=== PATIENT | male | born 1965 | race Caucasian/White ===

== ENCOUNTER 2019-11-23 02:12 | Inpatient (IN) | payer BC ==
[2019-11-23] MEDS ORDERED: SODIUM CHLORIDE 0.9% 1,000 ML IV STA (02:28)
--- NOTE | 2019-11-23 02:28 | ED ---
GI Bleed HPI - General Chief complaint: GI Bleed Stated complaint: blood in stool Time Seen by Provider: 11/23/19 02:28 Source: patient, family Mode of arrival: wheelchair Limitations: no limitations - History of Present Illness Initial comments: Kamari Kitchen previously healthy 53-year-old male who is brought to the ER today by his in a private vehicle for evaluation of acute onset of bright red bleeding per rectum. Patient reports he has had 4-6 episodes of bright red bleeding per rectum in the past 2 hours which prompted him to come to the ER for evaluation. Patient has no history of GI bleeding in the past. He has never had a colonoscopy. He is not on any anticoagulant medication but states that he takes 2 aspirin daily and sometimes takes extra for pain. Patient denies any recent abdominal pain, fevers, chills nausea or vomiting. - Related Data Allergies Allergy/AdvReac Type Severity Reaction Status Date / Time No Known Allergies Allergy Verified 11/23/19 02:23 Review of Systems ROS Statement: Those systems with pertinent positive or pertinent negative responses have been documented in the HPI. ROS Other: All systems not noted in ROS Statement are negative. Past Medical History Past Medical History: No Reported History History of Any Multi-Drug Resistant Organisms: None Reported Past Surgical History: Tonsillectomy Past Psychological History: No Psychological Hx Reported Smoking Status: Former smoker Past Alcohol Use History: Occasional Past Drug Use History: None Reported General Exam - General Exam Comments Initial Comments: Physical Exam GENERAL: Patient is acutely distressed he is pale cool and diaphoretic HENT: Normocephalic, Atraumatic. EYES: PERRL, EOMI No conjunctival pallor PULMONARY: Unlabored respirations. No audible rales rhonchi or wheezing was noted. CARDIOVASCULAR: There is a regular rate and rhythm without any murmurs gallops or rubs. ABDOMEN: Soft and nontender with normal bowel sounds. SKIN: Skin is pale cool and diaphoretic : Bright red blood per rectum NEUROLOGIC: Patient is alert and oriented x3. Moving all extremities spontaneously MUSCULOSKELETAL: Normal extremities with adequate strength and full range of motion. No lower extremity swelling or edema. No calf tenderness. PSYCHIATRIC: Normal psychiatric evaluation. Limitations: no limitations Course Vital Signs 11/23/19 11/23/19 11/23/19 02:16 02:39 03:00 Temperature 98.1 F Pulse Rate 61 61 64 Respiratory 20 20 16 Rate Blood Pressure 98/63 94/63 99/66 O2 Sat by Pulse 96 95 95 Oximetry 11/23/19 11/23/19 11/23/19 03:30 04:00 04:30 Temperature Pulse Rate 71 74 69 Respiratory 16 16 16 Rate Blood Pressure 100/63 94/58 109/69 O2 Sat by Pulse 95 95 96 Oximetry Medical Decision Making - Medical Decision Making The patient was seen and evaluated immediately upon arrival the emergency department Patient was noted to be pale cool diaphoretic hypotensive but with a normal heart rate physical exam reveals general and having bright red blood per rectum, normal heart rate, extremities are cool and clamped down Labs were obtained, gentle IV fluids were obtained Labs resulted with lactic acidosis, no evidence of anemia Labs did result with elevated glucose, patient has no formal diagnosis or previous diagnosis of diabetes, advised the patient that based on his labs today he is diabetic and will need follow-up with primary care Bright red bleeding per rectum slow down while in the emergency department CT scan was obtained which revealed diffuse diverticula with no acute di verticulitis no masses or significant vascular anomalies Patient was updated on findings, advised of need for admission, patient is agreeable Patient care was discussed with Dr. Staton of the [facility] who accepts the admission - Lab Data Result diagrams: 11/23/19 02:38 11/23/19 02:38 Lab Results 11/23/19 11/23/19 11/23/19 Range/Units 02:35 02:38 02:38 WBC 10.6 (3.8-10.6) k/uL RBC 4.87 (4.30-5.90) m/uL Hgb 14.3 (13.0-17.5) gm/dL Hct 42.8 (39.0-53.0) % MCV 87.8 (80.0-100.0) fL MCH 29.3 (25.0-35.0) pg MCHC 33.4 (31.0-37.0) g/dL RDW 13.1 (11.5-15.5) % Plt Count 318 (150-450) k/uL Neutrophils % 39 % Lymphocytes % 45 % Monocytes % 5 % Eosinophils % 8 % Basophils % 1 % Neutrophils # 4.2 (1.3-7.7) k/uL Lymphocytes # 4.7 (1.0-4.8) k/uL Monocytes # 0.5 (0-1.0) k/uL Eosinophils # 0.8 H (0-0.7) k/uL Basophils # 0.1 (0-0.2) k/uL APTT 20.4 L (22.0-30.0) sec Sodium (137-145) mmol/L Potassium (3.5-5.1) mmol/L Chloride (98-107) mmol/L Carbon Dioxide (22-30) mmol/L Anion Gap mmol/L BUN (9-20) mg/dL Creatinine (0.66-1.25) mg/dL Est GFR (CKD-EPI)AfAm (>60 ml/min/1.73 sqM) Est GFR (CKD-EPI)NonAf (>60 ml/min/1.73 sqM) Glucose (74-99) mg/dL Plasma Lactic Acid Amari (0.7-2.0) mmol/L Calcium (8.4-10.2) mg/dL Total Bilirubin (0.2-1.3) mg/dL AST (17-59) U/L ALT (4-49) U/L Alkaline Phosphatase (38-126) U/L Troponin I (0.000-0.034) ng/mL Total Protein (6.3-8.2) g/dL Albumin (3.5-5.0) g/dL Salicylates mg/dL Blood Type Blood Type Confirm O Positive Blood Type Recheck Bld Type Recheck Status Antibody Screen Spec Expiration Date 11/23/19 11/23/19 11/23/19 Range/Units 02:38 02:38 02:38 WBC (3.8-10.6) k/uL RBC (4.30-5.90) m/uL Hgb (13.0-17.5) gm/dL Hct (39.0-53.0) % MCV (80.0-100.0) fL MCH (25.0-35.0) pg MCHC (31.0-37.0) g/dL RDW (11.5-15.5) % Plt Count (150-450) k/uL Neutrophils % % Lymphocytes % % Monocytes % % Eosinophils % % Basophils % % Neutrophils # (1.3-7.7) k/uL Lymphocytes # (1.0-4.8) k/uL Monocytes # (0-1.0) k/uL Eosinophils # (0-0.7) k/uL Basophils # (0-0.2) k/uL APTT (22.0-30.0) sec Sodium 130 L (137-145) mmol/L Potassium 4.1 (3.5-5.1) mmol/L Chloride 97 L (98-107) mmol/L Carbon Dioxide 22 (22-30) mmol/L Anion Gap 11 mmol/L BUN 24 H (9-20) mg/dL Creatinine 0.86 (0.66-1.25) mg/dL Est GFR (CKD-EPI)AfAm >90 (>60 ml/min/1.73 sqM) Est GFR (CKD-EPI)NonAf >90 (>60 ml/min/1.73 sqM) Glucose 432 H (74-99) mg/dL Plasma Lactic Acid Amari 2.2 H* (0.7-2.0) mmol/L Calcium 9.0 (8.4-10.2) mg/dL Total Bilirubin 0.5 (0.2-1.3) mg/dL AST 20 (17-59) U/L ALT 21 (4-49) U/L Alkaline Phosphatase 151 H (38-126) U/L Troponin I <0.012 (0.000-0.034) ng/mL Total Protein 6.1 L (6.3-8.2) g/dL Albumin 3.9 (3.5-5.0) g/dL Salicylates 1.1 mg/dL Blood Type Blood Type Confirm Blood Type Recheck Bld Type Recheck Status Antibody Screen Spec Expiration Date 11/23/19 Range/Units 02:40 WBC (3.8-10.6) k/uL RBC (4.30-5.90) m/uL Hgb (13.0-17.5) gm/dL Hct (39.0-53.0) % MCV (80.0-100.0) fL MCH (25.0-35.0) pg MCHC (31.0-37.0) g/dL RDW (11.5-15.5) % Plt Count (150-450) k/uL Neutrophils % % Lymphocytes % % Monocytes % % Eosinophils % % Basophils % % Neutrophils # (1.3-7.7) k/uL Lymphocytes # (1.0-4.8) k/uL Monocytes # (0-1.0) k/uL Eosinophils # (0-0.7) k/uL Basophils # (0-0.2) k/uL APTT (22.0-30.0) sec Sodium (137-145) mmol/L Potassium (3.5-5.1) mmol/L Chloride (98-107) mmol/L Carbon Dioxide (22-30) mmol/L Anion Gap mmol/L BUN (9-20) mg/dL Creatinine (0.66-1.25) mg/dL Est GFR (CKD-EPI)AfAm (>60 ml/min/1.73 sqM) Est GFR (CKD-EPI)NonAf (>60 ml/min/1.73 sqM) Glucose (74-99) mg/dL Plasma Lactic Acid Amari (0.7-2.0) mmol/L Calcium (8.4-10.2) mg/dL Total Bilirubin (0.2-1.3) mg/dL AST (17-59) U/L ALT (4-49) U/L Alkaline Phosphatase (38-126) U/L Troponin I (0.000-0.034) ng/mL Total Protein (6.3-8.2) g/dL Albumin (3.5-5.0) g/dL Salicylates mg/dL Blood Type O Positive Blood Type Confirm Blood Type Recheck No Previous Record Bld Type Recheck Status CABO Indicated Antibody Screen NEGATIVE Spec Expiration Date 11/26/2019 - 2339 Critical Care Time Critical Care Time: Yes Total Critical Care Time: 30 Critical Care Time: Critical care time was exclusive of separately billable procedures and treating other patients and teaching time. Critical care was necessary to treat or prevent imminent or life-threatening deterioration. Given the critical condition in which the patient arrived, the patient was immediately assessed by myself and the nurse, and cardiac monitoring initiated due to the potential for rapid decompensation of the patient's clinical c ondition. During the course of the patients stay, I spent a considerable amount of time at the bedside performing serial re-evaluations of the patient's hemodynamic and clinical status because of the recognized potential threat to life or limb in this condition. I then had a chance to review not only all of the available current laboratory and radiographic studies obtained today, but I also reviewed old records available to me at the time. Additionally, any ancillary information available including housing director records were reviewed. Sequential vital signs were obtained. Disposition Clinical Impression: Bright red blood per rectum Disposition: ADMITTED IP TO THIS HOSP Condition: Serious Is patient prescribed a controlled substance at d/c from ED?: No Referrals: Kamron Wong [Primary Care Provider] - 1-2 days
[2019-11-23 02:48] LABS: Basophils # (A) 0.1 k/uL (0-0.2); Basophils % (A) 1 %; Eosinophils # (A) 0.8 k/uL (0-0.7); Eosinophils % (A) 8 %; HCT 42.8 % (39.0-53.0); HGB 14.3 gm/dL (13.0-17.5); Lymphocytes # (A) 4.7 k/uL (1.0-4.8); Lymphocytes % (A) 45 %; MCH 29.3 pg (25.0-35.0); MCHC 33.4 g/dL (31.0-37.0); MCV 87.8 fL (80.0-100.0); Mean Platelet Volume 7.4; Monocytes # (A) 0.5 k/uL (0-1.0); Monocytes % (A) 5 %; Neutrophils # (A) 4.2 k/uL (1.3-7.7); Neutrophils % (A) 39 %; Platelet Count 318 k/uL (150-450); RBC 4.87 m/uL (4.30-5.90); RDW 13.1 % (11.5-15.5); WBC 10.6 k/uL (3.8-10.6)
[2019-11-23 03:01] LABS: ALT 21 U/L (4-49); AST 20 U/L (17-59); African American GFR (CKD) >90 (>60 ml/min/1.73 sqM); Albumin 3.9 g/dL (3.5-5.0); Alkaline Phosphatase 151 U/L (38-126); Anion Gap 11 mmol/L; Blood Urea Nitrogen 24 mg/dL (9-20); Carbon Dioxide 22 mmol/L (22-30); Chloride 97 mmol/L (98-107); Glucose 432 mg/dL (74-99); Non-African American GFR(CKD) >90 (>60 ml/min/1.73 sqM); Potassium 4.1 mmol/L (3.5-5.1); Salicylate 1.1 mg/dL; Sodium 130 mmol/L (137-145); Total Bilirubin 0.5 mg/dL (0.2-1.3); Total Protein 6.1 g/dL (6.3-8.2)
[2019-11-23] MEDS ORDERED: INSULIN REGULAR 100 UNIT/ML VIAL SQ ONE (03:23)
--- NOTE | 2019-11-23 04:19 | CT ---
EXAMINATION TYPE: CT abdomen pelvis w con DATE OF EXAM: 11/23/2019 COMPARISON: None HISTORY: Bood in Stool CT DLP: 2206.40 mGycm Automated exposure control for dose reduction was used. CONTRAST: Performed with IV Contrast, patient injected with 100 mL of Isovue 300. The lung bases are clear of infiltrate. There is no pleural effusion. Heart size is normal. There is no pericardial effusion. The stomach is intact. Liver spleen pancreas gallbladder appear normal. Bile ducts are not dilated. There is no adrenal mass. Kidneys show satisfactory contrast opacification. There is no hydronephrosi s. Ureters are not dilated. There is no retroperitoneal adenopathy. Bladder distends smoothly. There is mild left inguinal hernia containing fat. There are multiple diverticula of the proximal sigmoid colon. I see no sign of diverticulitis. There is no mesenteric edema. There is no ascites or free air. There is no bowel obstruction. Appendi x is posterior and appears normal. The delayed images show normal renal excretion. Lumbar vertebra have normal alignment. Disc spaces are fairly normal. There is no compression fractur e. The bony pelvis is intact. IMPRESSION: Numerous sigmoid diverticula without evidence of diverticulitis. Scattered diverticula throughout the remainder of the colon. Normal appendix.
--- NOTE | 2019-11-23 05:40 | P.HPIM ---
History of Present Illness H&P Date: 11/23/19 The patient is a 53-year-old male with no known PMH who presented to the ED with complaints of lower GI bleeding. The patient reports that his symptoms started suddenly at around 2 AM just before he was walking out of bed. He reports that he had 3 episodes of watery bright red bloody stools at home with subsequent 3 more episodes while in the waiting area the emergency room. He reports that he became lightheaded and felt as though he was going to lose consciousness, but then laid on the ground which made him feel better. He reports taking 2 aspirins (unable to recall dose) nightly the past 1 month since he has been doing structured was in his house. He reports seeing a physician 3 months ago but notes that he has not had any blood work done for years since she does not like it. He also has never undergone a colonoscopy. He experienced some nausea with the onset of his symptoms which had resolved the time of interview. He denied abdominal pain, or vomiting. Denied any prior similar episodes. Denied chest pain, shortness of breath, fever, chills, cough. In the emergency room, hemoglobin was 14.3 (no baseline available), sodium 1:30, chloride 97, BUN 24, lactic acid 2.2, glucose 432, troponin less than 0.012. The patient's vital signs upon presentation wasn't BP 90/63 with a pulse of 61, saturating 96% on room air and T-max of 98.1. CT abdomen and pelvis revealed numerous sigmoid diverticula without evidence of diverticulitis. Review of Systems Pertinent positives and negatives as discussed in HPI, a complete review of systems was performed and all other systems are negative. Past Medical History Past Medical History: No Reported History History of Any Multi-Drug Resistant Organisms: None Reported Past Surgical History: Tonsillectomy Past Psychological History: No Psychological Hx Reported Smoking Status: Former smoker Past Alcohol Use History: Occasional Past Drug Use History: None Reported Medications and Allergies Allergies Allergy/AdvReac Type Severity Reaction Status Date / Time No Known Allergies Allergy Verified 11/23/19 02:23 Physical Exam Vitals: Vital Signs Temp Pulse Resp BP Pulse Ox 11/23/19 04:30 69 16 109/69 96 11/23/19 04:00 74 16 94/58 95 11/23/19 03:30 71 16 100/63 95 11/23/19 03:00 64 16 99/66 95 11/23/19 02:39 61 20 94/63 95 11/23/19 02:16 98.1 F 61 20 98/63 96 Intake and Output 11/22/19 11/22/19 11/23/19 14:59 22:59 06:59 Other: Weight 113.398 kg General: non toxic, no distress, appears at stated age, obese Derm: no unusual rashes/lesions no unusual ecchymoses, warm, dry Head: atraumatic, normocephalic, symmetric Eyes: EOMI, no lid lag, anicteric sclera, pupils equal round reactive to light ENT: Nose and ears atraumatic, no thrush, no pharyngeal erythema Neck: No thyromegaly, no cervical lymphadenopathy, trachea midline, supple Mouth: no lip lesion, mucus membranes moist Cardiovascular: S1S2 reg, no murmur, positive posterior tibial pulse bilateral, no edema, capillary refill less than 2 seconds Lungs: CTA bilateral, no rhonchi, no rales , no accessory muscle use Abdominal: soft, nontender to palpation, no guarding, no appreciable organomegaly, normal bowel sounds Ext: no gross muscle atrophy, muscle strength 5 out of 5 in all 4 extremities grossly, no contractures, Neuro: CN II-XI grossly intact, light touch intact all 4 extremities, finger to nose within normal limits, Psych: Alert, oriented, appropriate affect Results CBC & Chem 7: 11/23/19 02:38 11/23/19 02:38 Labs: Abnormal Lab Results - Last 24 Hours (Table) 11/23/19 11/23/19 11/23/19 Range/Units 02:38 02:38 02:38 Eosinophils # 0.8 H (0-0.7) k/uL APTT 20.4 L (22.0-30.0) sec Sodium 130 L (137-145) mmol/L Chloride 97 L (98-107) mmol/L BUN 24 H (9-20) mg/dL Glucose 432 H (74-99) mg/dL Plasma Lactic Acid Amari (0.7-2.0) mmol/L Alkaline Phosphatase 151 H (38-126) U/L Total Protein 6.1 L (6.3-8.2) g/dL 11/23/19 Range/Units 02:38 Eosinophils # (0-0.7) k/uL APTT (22.0-30.0) sec Sodium (137-145) mmol/L Chloride (98-107) mmol/L BUN (9-20) mg/dL Glucose (74-99) mg/dL Plasma Lactic Acid Amari 2.2 H* (0.7-2.0) mmol/L Alkaline Phosphatase (38-126) U/L Total Protein (6.3-8.2) g/dL Assessment and Plan Plan: Acute GI bleed, possibly secondary to diverticulosis versus peptic ulcer disease (in setting of aspirin use) -Monitor CBC -GI consult -Nothing by mouth for now -Strict bedrest -IV fluids -Protonix IV Newly diagnosed type II DM -Obtain A1c -Start insulin sliding scale with blood glucose monitoring -Levemir 10 units daily at bedtime -extension educator Lactic acidosis -Likely secondary to hypotension -Monitor for resolution Elevated BUN -Likely due to GI bleeding Hyponatremia -Likely as a result of SIADH from GI pathology -Monitor for now DVT prophylaxis -IPCDs The patient is admitted with an anticipated greater than 2 midnight stay for evaluation of GI bleeding CODE STATUS: Full Code Discussed with: Patient Anticipated discharge date: 2-[address]: Home A total of 40 minutes was spent on the care of this complex patient more than 50% of the time was spent in counseling and care coordination.
[2019-11-23] MEDS ORDERED: PANTOPRAZOLE 40 MG/10 ML VIAL IVP STA (05:44)
[2019-11-23] MEDS ORDERED: DIAZEPAM 5 MG/ML 2 ML INJ IVP STA (05:56)
[2019-11-23] MEDS: PANTOPRAZOLE 40 MG/10 ML VIAL IVP SCH ×2 (11:22→21:39)
[2019-11-23] MEDS: INSULIN ASPART (NovoLOG) 100 UNIT/ML VIAL SQ SCH ×4 (12:37→21:39)
[2019-11-23 12:43] LABS: Glucose,Whole Blood 330 mg/dL (75-99)
[2019-11-23 13:08] LABS: Basophils # (A) 0.1 k/uL (0-0.2); Basophils % (A) 1 %; Eosinophils # (A) 0.2 k/uL (0-0.7); Eosinophils % (A) 4 %; HCT 38.9 % (39.0-53.0); HGB 12.6 gm/dL (13.0-17.5); Lymphocytes # (A) 1.5 k/uL (1.0-4.8); Lymphocytes % (A) 21 %; MCH 28.8 pg (25.0-35.0); MCHC 32.5 g/dL (31.0-37.0); MCV 88.5 fL (80.0-100.0); Mean Platelet Volume 7.3; Monocytes # (A) 0.3 k/uL (0-1.0); Monocytes % (A) 4 %; Neutrophils # (A) 4.8 k/uL (1.3-7.7); Neutrophils % (A) 69 %; Platelet Count 243 k/uL (150-450); RDW 13.2 % (11.5-15.5); WBC 6.9 k/uL (3.8-10.6)
[2019-11-23 13:11] LABS: African American GFR (CKD) >90 (>60 ml/min/1.73 sqM); Anion Gap 5 mmol/L; Blood Urea Nitrogen 17 mg/dL (9-20); Calcium 8.8 mg/dL (8.4-10.2); Carbon Dioxide 27 mmol/L (22-30); Chloride 100 mmol/L (98-107); Glucose 321 mg/dL (74-99); Non-African American GFR(CKD) >90 (>60 ml/min/1.73 sqM); Potassium 4.3 mmol/L (3.5-5.1); Sodium 132 mmol/L (137-145)
[2019-11-23] MEDS: SODIUM CHLORIDE 0.9% 1,000 ML IV SCH (15:05)
[2019-11-23] MEDS ORDERED: PEG 3350-NA SULF,BICARB,CL/KCL 4,000 ML BOTTLE PO ONE (17:00)
[2019-11-23 17:06] LABS: Glucose,Whole Blood 233 mg/dL (75-99)
[2019-11-23 20:54] LABS: Glucose,Whole Blood 344 mg/dL (75-99)
[2019-11-23] MEDS ORDERED: INSULIN DETEMIR (LEVEMIR) 100 UNIT/ML SYR SQ SCH (21:00)
[2019-11-23] MEDS: ALPRAZolam 0.25 MG TAB PO PRN (21:40)
[2019-11-23 23:02] LABS: Hemoglobin A1C 13.3 % (4.0-6.0)
--- NOTE | 2019-11-23 23:59 | CONS ---
CONSULTATION DATE OF DICTATION: November 23, 2019. REASON FOR CONSULTATION: Acute lower GI bleed. HISTORY OF PRESENT ILLNESS: The patient is a 53-year-old pleasant white male came to the hospital complaining of rectal bleeding that started at 2 a.m. this morning. He woke up from sleep and he had an episode of bright red blood per rectum and subsequently he had 3 episodes. He became somewhat dizzy and lightheaded. He came into the emergency room and after that he had another 4 episodes of bright red blood per rectum. Each time he thought he had seen significant amount of bleeding. He had slight cramping in the lower abdomen, but no significant abdominal pain. No nausea, no vomiting. His initial hemoglobin in the emergency room was 14.4 g/dL. He never had these symptoms in the past. No prior history of colonoscopy. Labs in the emergency room showed hemoglobin 14.3 g/dL. PAST MEDICAL HISTORY: Unremarkable. PAST SURGICAL HISTORY: Tonsillectomy. SOCIAL HISTORY: Former smoker. No alcohol use. MEDICATIONS: Medications at home are none. ALLERGIES: None. REVIEW OF SYSTEMS: CARDIOPULMONARY: No chest pain, no shortness of breath. GENITOURINARY: No dysuria or hematuria. MUSCULOSKELETAL: Unremarkable. SKIN: Unremarkable. ENDOCRINE: Unremarkable. PSYCHIATRIC: Unremarkable. NEUROLOGY: Unremarkable. ENT/VISION: Unremarkable. CONSTITUTIONAL: No recent weight loss. No fever, chills, night sweats. PHYSICAL EXAMINATION: He appears comfortable, in no apparent distress. VITAL SIGNS: Stable. Blood pressure is 115/77, pulse rate 90, temperature 98.7. HEENT EXAMINATION: Unremarkable. Conjunctivae pink. Sclerae anicteric. Oral cavity no lesions. NECK: No JVD or lymph node enlargement. CHEST: Clear to auscultation. HEART: Regular rate and rhythm. ABDOMEN: Soft. Bowel sounds are positive. No organomegaly. EXTREMITIES: No pedal edema. SKIN: No rashes. NEUROLOGIC: Alert and oriented x3. No focal deficits. LABS: Labs from this morning, WBC 6.9, hemoglobin 12.6, platelets normal at 243. PT, INR is normal. Basic metabolic panel is within normal limits with of BUN of 17, creatinine 0.82. IMPRESSION: Acute lower gastrointestinal bleed possibly diverticular in nature. The patient presented with multiple episodes of bright red blood per rectum that started at 2 a.m. this morning. He Had seven episodes so far. The last one was at 9 a.m. The patient remains hemodynamically stable. Hemoglobin at the time of admission to the hospital was 14.3 and today the last one is 12.6 g/dL. He had a CT of the abdomen and pelvis done in the emergency room that did show evidence of diverticulosis, most likely we are dealing with a diverticular bleed but cannot rule out other lower gastrointestinal pathology. RECOMMENDATIONS: 1. Monitor CBC every 6 hours. 2. Clear liquid diet. 3. We will proceed with a colonoscopy tomorrow. Discussed with the patient risks, benefits and complications and he is agreeable to it. Thank you for this consultation. FARIDEHL / IJN: [id number] /
[2019-11-24 06:20] LABS: Glucose,Whole Blood 219 mg/dL (75-99)
[2019-11-24 07:18] LABS: Basophils # (A) 0.1 k/uL (0-0.2); Basophils % (A) 1 %; Eosinophils # (A) 0.5 k/uL (0-0.7); Eosinophils % (A) 10 %; HCT 33.9 % (39.0-53.0); HGB 11.2 gm/dL (13.0-17.5); Lymphocytes # (A) 1.7 k/uL (1.0-4.8); Lymphocytes % (A) 36 %; MCH 29.2 pg (25.0-35.0); MCHC 32.9 g/dL (31.0-37.0); MCV 88.7 fL (80.0-100.0); Monocytes # (A) 0.2 k/uL (0-1.0); Monocytes % (A) 5 %; Neutrophils # (A) 2.1 k/uL (1.3-7.7); Neutrophils % (A) 46 %; Platelet Count 219 k/uL (150-450); RBC 3.83 m/uL (4.30-5.90); RDW 13.2 % (11.5-15.5); WBC 4.6 k/uL (3.8-10.6)
[2019-11-24] MEDS: INSULIN ASPART (NovoLOG) 100 UNIT/ML VIAL SQ SCH ×4 (07:29→22:23)
[2019-11-24] MEDS: SODIUM CHLORIDE 0.9% 1,000 ML IV SCH ×2 (07:30→11:47)
[2019-11-24 07:36] LABS: African American GFR (CKD) >90 (>60 ml/min/1.73 sqM); Anion Gap 5 mmol/L; Blood Urea Nitrogen 10 mg/dL (9-20); Carbon Dioxide 26 mmol/L (22-30); Chloride 106 mmol/L (98-107); Glucose 207 mg/dL (74-99); Non-African American GFR(CKD) >90 (>60 ml/min/1.73 sqM); Potassium 3.8 mmol/L (3.5-5.1); Sodium 137 mmol/L (137-145)
[2019-11-24] MEDS: PANTOPRAZOLE 40 MG/10 ML VIAL IVP SCH ×2 (09:25→22:22)
--- NOTE | 2019-11-24 10:52 | P.PN ---
Subjective Progress Note Date: 11/24/19 Principal diagnosis: LGI bleed Patient is doing well today. He denies any further rectal bleed. No acute events overnight reported by nursing staff. Blood glucose remained not well controlled. Objective - Vital Signs Vital signs: Vital Signs Temp 97.6 F 11/24/19 08:00 Pulse 75 11/24/19 08:00 Resp 20 11/24/19 08:00 BP 125/76 11/24/19 08:00 Pulse Ox 97 11/24/19 08:00 Intake & Output 11/23/19 11/24/19 11/24/19 18:59 06:59 18:59 Output Total 4 1 Balance -4 -1 Weight 113.398 kg 129.5 kg Output: Stool 4 1 Other: # Voids 1 3 # Bowel Movements 5 - Exam General: The patient is awake and alert, in no distress Eye: there is normal conjunctiva bilaterally. Neck: The neck is supple, there is no JVD. Cardiovascular: Normal S1-S2, no S3-S4, no murmurs. Respiratory: Lungs clear to auscultation bilaterally Gastrointestinal: Abdomen is soft, nontender Musculoskeletal: There is no pedal edema. Neurological:. Speech is normal. Skin: Skin is warm and dry - Labs CBC & Chem 7: 11/24/19 06:45 11/24/19 06:45 Labs: Abnormal Lab Results - Last 24 Hours (Table) 11/23/19 11/23/19 11/23/19 Range/Units 12:39 12:39 12:39 RBC (4.30-5.90) m/uL Hgb 12.6 L (13.0-17.5) gm/dL Hct 38.9 L (39.0-53.0) % Sodium 132 L (137-145) mmol/L Glucose 321 H (74-99) mg/dL POC Glucose (mg/dL) (75-99) mg/dL Hemoglobin A1c 13.3 H (4.0-6.0) % Calcium (8.4-10.2) mg/dL 11/23/19 11/23/19 11/23/19 Range/Units 12:41 17:05 20:43 RBC (4.30-5.90) m/uL Hgb (13.0-17.5) gm/dL Hct (39.0-53.0) % Sodium (137-145) mmol/L Glucose (74-99) mg/dL POC Glucose (mg/dL) 330 H 233 H 344 H (75-99) mg/dL Hemoglobin A1c (4.0-6.0) % Calcium (8.4-10.2) mg/dL 11/24/19 11/24/19 11/24/19 Range/Units 06:19 06:45 06:45 RBC 3.83 L (4.30-5.90) m/uL Hgb 11.2 L (13.0-17.5) gm/dL Hct 33.9 L (39.0-53.0) % Sodium (137-145) mmol/L Glucose 207 H (74-99) mg/dL POC Glucose (mg/dL) 219 H (75-99) mg/dL Hemoglobin A1c (4.0-6.0) % Calcium 8.0 L (8.4-10.2) mg/dL Assessment and Plan Assessment: This is a 53-year-old male with past medical history noted below who presented to the ER with bloody bowel movement. Patient is currently admitted to the hospital for further management of his medical problems noted below. Acute lower GI bleed, most likely secondary to diverticular bleed -Computed tomography scan of the abdomen and pelvis showed numerous sigmoid diverticula without evidence of diverticulitis -Seen and evaluated by GI, scheduled for colonoscopy today. -Currently on Protonix twice daily Newly diagnosed type II DM -A1c 13.3 -Start insulin sliding scale with blood glucose monitoring -Levemir 12 units twice a day -clinical document improvement educator Acute blood loss anemia -Hemoglobin dropped 3 g since admission -We will continue to monitor and transfuse as needed Lactic acidosis -Likely secondary to hypotension -Resolved with IV fluid hydration Elevated BUN -Likely due to GI bleeding Hyponatremia -Resolved with IV fluid hydration DVT prophylaxis -IPCDs Awaiting prosthodontist/educator. Patient needs to be comfortable with doing his own insulin. Repeat hemoglobin in the morning
[2019-11-24 11:22] LABS: Glucose,Whole Blood 238 mg/dL (75-99)
[2019-11-24 14:28] VITALS: BMI 36.6
[2019-11-24] MEDS ORDERED: PROPOFOL 10 MG/ML 20 ML VIAL IV ONE (14:44)
[2019-11-24] MEDS ORDERED: LACTATED RINGERS 1,000 ML IV ONE (14:49)
--- NOTE | 2019-11-24 15:14 | P.PCN ---
Date of Procedure: 11/24/19 Procedure(s) Performed: BRIEF HISTORY: Patient is a 53-year-old pleasant white male admitted hospital with acute lower GI bleed. He presented with multiple episodes of bright red blood per rectum and drop his hemoglobin from 14 11 g/dL. He is scheduled for follow-up colonoscopy to evaluate for lower GI bleed. PROCEDURE PERFORMED: Colonoscopy with snare polypectomy. PREOPERATIVE DIAGNOSIS: Acute lower GI bleed. IV sedation per Anesthesia. PROCEDURE: After informed consent was obtained, the patient, was brought into the endoscopy unit. IV sedation was administered by Anesthesia under continuous monitoring. Digital rectal examination was normal. Initially the Olympus CF-160 flexible video colonoscope was then inserted in the rectum, gradually advanced into the cecum without any difficulty. Careful examination was performed as the scope was gradually being withdrawn. Ileocecal valve and the appendiceal orifice were visualized and appeared normal. In the base of cecum there was a 1 cm cecal polyp that was removed by snare polypectomy. Prep was excellent. No active bleeding identified. Mucosa of the cecum, ascending colon, transverse colon, descending colon, sigmoid colon, and rectum appeared normal. Scattered left-sided diverticulosis seen. Retroflexion was performed in the rectum and no lesions were seen. The patient tolerated the procedure well. IMPRESSION: 1 cm cecal polyp status post polypectomy Scattered sigmoid diverticulosis RECOMMENDATIONS: Findings of this examination were discussed with the patient as well as his family. Recent episode of bleeding most likely diverticular in nature which spontaneously resolved. He'll be started on regular diet. He can be discharged home today or tomorrow. He was advised to follow with the biopsy doesn't the biopsy shows an adenoma he can have a repeat colonoscopy in 5 years.
[2019-11-24 17:17] LABS: Glucose,Whole Blood 248 mg/dL (75-99)
[2019-11-24 20:27] LABS: Glucose,Whole Blood 258 mg/dL (75-99)
[2019-11-24] MEDS: INSULIN DETEMIR (LEVEMIR) 100 UNIT/ML SYR SQ SCH (22:22)
[2019-11-24] MEDS: ALPRAZolam 0.25 MG TAB PO PRN (22:23)
[2019-11-25 05:29] VITALS: TEMP 98.1
[2019-11-25 06:21] LABS: Glucose,Whole Blood 290 mg/dL (75-99)
[2019-11-25 06:39] LABS: Basophils # (A) 0.1 k/uL (0-0.2); Basophils % (A) 1 %; Eosinophils # (A) 0.5 k/uL (0-0.7); Eosinophils % (A) 10 %; HCT 35.3 % (39.0-53.0); HGB 11.6 gm/dL (13.0-17.5); Lymphocytes # (A) 1.5 k/uL (1.0-4.8); Lymphocytes % (A) 34 %; MCH 29.1 pg (25.0-35.0); MCV 88.3 fL (80.0-100.0); Mean Platelet Volume 7.3; Monocytes # (A) 0.2 k/uL (0-1.0); Monocytes % (A) 5 %; Neutrophils % (A) 47 %; Platelet Count 230 k/uL (150-450); RDW 13.2 % (11.5-15.5); WBC 4.3 k/uL (3.8-10.6)
[2019-11-25 07:01] LABS: Cholesterol 174 mg/dL (<200); HDL Cholesterol 24 mg/dL (40-60)
[2019-11-25] MEDS: INSULIN ASPART (NovoLOG) 100 UNIT/ML VIAL SQ SCH ×2 (07:05→13:14)
[2019-11-25 07:11] LABS: Triglycerides 666 mg/dL (<150)
[2019-11-25] MEDS: PANTOPRAZOLE 40 MG/10 ML VIAL IVP SCH (08:29)
[2019-11-25] MEDS: INSULIN DETEMIR (LEVEMIR) 100 UNIT/ML SYR SQ SCH (08:29)
--- NOTE | 2019-11-25 09:54 | P.DS ---
Providers Date of admission: 11/23/19 06:24 Expected date of discharge: 11/25/19 Attending physician: Didier Staton MD Consults: 11/23/19 05:40 Consult Physician Urgent Consulting Provider: Terri Coy Consult Reason/Comments: GIB Do you want consulting provider notified?: Yes Primary care physician: Kamron [facility] Course: This is a 53-year-old male with past medical history noted below who presented to the ER with bloody bowel movement. Patient was admitted to the hospital for further management of his medical problems noted below. Acute lower GI bleed, most likely secondary to diverticular bleed -Computed tomography scan of the abdomen and pelvis showed numerous sigmoid diverticula without evidence of diverticulitis -Seen and evaluated by GI, and underwent the colonoscopy showed diverticulosis and one polyp that was removed. Follow-up pathology Newly diagnosed type II DM -A1c 13.3 -Started insulin with Lantus 24 units at bedtime, metformin 500 mg twice daily -Patient had diabetes teaching during this hospitalization advised to continue monitoring his blood glucose closely -Follow up with PCP for further management Acute blood loss anemia -Hemoglobin stabilized around 11 prior to discharge Hyperlipidemia with hypertriglyceridemia -Started on Lipitor 40 mg at bedtime Hyponatremia -Resolved with IV fluid hydration Patient will be discharged home in a stable condition. He will follow-up with his PCP and GI as directed. For further details about this hospitalization please refer to the electronic chart. Patient Condition at Discharge: Fair Plan - Discharge Summary Discharge Rx Participant: No New Discharge Prescriptions: New metFORMIN HCL [Glucophage] 500 mg PO BID #60 tab Insulin Glargine,Hum.rec.anlog [Lantus Solostar] 24 unit SQ HS #3 pen Atorvastatin [Lipitor] 40 mg PO HS #30 tablet Continue Vitamin C/Zinc 1 tab PO DAILY Aspirin EC [Ecotrin Low Dose] 162 mg PO HS Discharge Medication List Aspirin EC [Ecotrin Low Dose] 162 mg PO HS 11/23/19 [History] Vitamin C/Zinc 1 tab PO DAILY 11/23/19 [History] Atorvastatin [Lipitor] 40 mg PO HS #30 tablet 11/25/19 [Rx] Insulin Glargine,Hum.rec.anlog [Lantus Solostar] 24 unit SQ HS #3 pen 11/25/19 [Rx] metFORMIN HCL [Glucophage] 500 mg PO BID #60 tab 11/25/19 [Rx] Follow up Appointment(s)/Referral(s): Terri Coy MD [STAFF PHYSICIAN] - 1 Week (Review colonoscopy biopsy results) Kamron Wong [Primary Care Provider] - 1-2 days Discharge Disposition: HOME SELF-CARE
[2019-11-25 10:32] VITALS: BP 143/83; PULSE 94; RESP 16
[2019-11-25 12:04] LABS: Glucose,Whole Blood 375 mg/dL (75-99)
--- NOTE | 2019-11-25 20:05 | PN ---
PROGRESS NOTE DATE OF DICTATION: 11/25/2019 Patient is a 53-year-old pleasant white male admitted to the hospital with acute lower GI bleed. He underwent a colonoscopy yesterday that revealed sigmoid diverticulosis and a small cecal polyp. The patient has no further bleeding. He is doing well. PHYSICAL EXAMINATION: Appears comfortable. No apparent distress. VITAL SIGNS: Stable. Blood pressure is 143/83, pulse rate 94 and afebrile. HEENT examination unremarkable. Conjunctivae pink. Sclerae anicteric. Oral cavity no lesions. NECK: No JVD or lymph node enlargement. CHEST: Clear to auscultation. HEART: Regular rate and rhythm. ABDOMEN: Soft. Bowel sounds are positive. No organomegaly. EXTREMITIES: No pedal edema. NEUROLOGIC: Alert and oriented x3. No focal deficits. LABS: WBC 4.3, hemoglobin 11.6, platelets 230. Rest of the labs are within normal limits. IMPRESSION: Acute lower gastrointestinal bleed, diverticular in nature. Colonoscopy yesterday showed diverticulosis and a cecal polyp. Patient doing well. No further bleeding. Hemoglobin 11.6 g/dL. RECOMMENDATIONS: 1. High-fiber diet. 2. He can be discharged home today with an outpatient followup as needed. He will be notified about the biopsy results from the colonoscopy. If the biopsy shows an adenoma, he was advised to have a repeat colonoscopy in 5 years. Thank you for this consultation. MMODL / IJN: [id number] /
== END 2019-11-25 13:35 | disposition home or self-care (01) | DRG 378 ==
LOC: EC 02:12 → 3SCARD 06:24
PROVIDERS: ADMIT Internal Medicine; ATTEND Internal Medicine
PROC: 0DBH8ZZ Excision of Cecum, Via Natural or Artificial Opening Endoscopic (ICD-10-PCS; principal; 2019-11-24 07:30)
DX: K57.33 Diverticulitis of large intestine without perforation or abscess with bleeding (principal); D62 Acute posthemorrhagic anemia; E87.2 Acidosis; E87.1 Hypo-osmolality and hyponatremia; E11.9 Type 2 diabetes mellitus without complications; I95.9 Hypotension, unspecified; E78.5 Hyperlipidemia, unspecified; K63.5 Polyp of colon; E78.1 Pure hyperglyceridemia; Z79.4 Long term (current) use of insulin; Z90.89 Acquired absence of other organs; Z87.891 Personal history of nicotine dependence; Z79.82 Long term (current) use of aspirin
CPT/HCPCS: 36415; 45385; 74177; 80048; 80053; 80061; 83036; 83520; 83605; 84484; 85025; 85730; 86850; 86900; 86901; 88305; 93005; 96361; 96374; 96375; 96376; 99291